=== PATIENT | female | born 1995 | race Two or more races ===

== ENCOUNTER 2022-08-09 19:55 | Emergency (ER) | payer OTHER ==
[~2022-08-09] VITALS: Ht 165.1 cm; Wt 61.2 kg
[2022-08-09] MEDS ORDERED: METRONIDAZOL VAG (20:26)
== END 2022-08-09 22:56 | disposition home or self-care (01) ==
LOC: ER 19:55
DX: N76.0 Acute vaginitis (principal)

== ENCOUNTER 2022-11-11 15:41 | Emergency (ER) | payer OTHER ==
[~2022-11-11] VITALS: Ht 165.1 cm; Wt 61.2 kg
[~2022-11-11 15:41] MED LIST: METRONIDAZOL VAG
[2022-11-11] MEDS ORDERED: BACTRIM DS TAB1 EACH PO (19:13)
== END 2022-11-11 19:25 | disposition home or self-care (01) ==
LOC: ER 15:41
DX: N39.0 Urinary tract infection, site not specified (principal)

== ENCOUNTER 2022-11-21 08:41 | Emergency (ER) | payer OTHER ==
[~2022-11-21] VITALS: Ht 165.1 cm; Wt 61.2 kg
[~2022-11-21 08:41] MED LIST changes: +BACTRIM DS TAB1 EACH PO
== END 2022-11-21 11:03 | disposition home or self-care (01) ==
LOC: ER 08:41
DX: T78.49XA Other allergy, initial encounter (principal); X58.XXXA Exposure to other specified factors, initial encounter